=== PATIENT | female | born 1990 | race African-American/Black ===

== ENCOUNTER 2019-12-04 11:16 | Emergency (ER) | payer OTHER ==
[~2019-12-04] VITALS: Ht 162.6 cm; Wt 68.0 kg
[2019-12-04] MEDS ORDERED: VOLTAREN-XR100 MG PO (14:43)
[2019-12-04] MEDS ORDERED: SKELAXIN800 MG PO (14:43)
== END 2019-12-04 15:01 ==
LOC: ER 11:16
DX: S33.5XXA Sprain of ligaments of lumbar spine, initial encounter (principal); X50.9XXA Other and unspecified overexertion or strenuous movements or postures, initial encounter; Y93.89 Activity, other specified; Y92.69 Other specified industrial and construction area as the place of occurrence of the external cause; Y99.8 Other external cause status